=== PATIENT | female | born 2000 | race African-American/Black ===

== ENCOUNTER 2021-06-22 11:56 | Emergency (ER) | payer OTHER ==
[~2021-06-22] VITALS: Ht 157.5 cm; Wt 106.6 kg
[2021-06-22 13:07] VITALS: BP 170/82
== END 2021-06-22 13:08 | disposition home or self-care (01) ==
LOC: M.ERS 11:56
DX: B34.9 Viral infection, unspecified (principal); Z20.822 Contact with and (suspected) exposure to COVID-19; R19.7 Diarrhea, unspecified

== ENCOUNTER 2021-07-24 19:57 | Emergency (ER) | payer OTHER ==
[~2021-07-24] VITALS: Ht 160 cm; Wt 104.3 kg
[2021-07-24 21:24] VITALS: BP 120/82
== END 2021-07-24 21:24 | disposition home or self-care (01) ==
LOC: M.ERS 19:57
DX: J02.9 Acute pharyngitis, unspecified (principal); Z20.822 Contact with and (suspected) exposure to COVID-19; R05.9 Cough, unspecified; R09.81 Nasal congestion